=== PATIENT | female | born 1960 | race African-American/Black ===

== ENCOUNTER 2019-04-02 14:20 | Inpatient (IN) | payer OTHER ==
[~2019-04-02] VITALS: Ht 160 cm; Wt 108.2 kg
[2019-04-02] MEDS ORDERED: NITR0.4T49 SL (14:38)
[2019-04-02] MEDS ORDERED: GABA-529 PO (14:38)
[2019-04-02 15:27] LABS: BASOPHILS % 0.3 % (0.0-2.0); EOSINOPHILS % 0.8 % (0.0-5.0); HEMATOCRIT. 36.9 % (36.0-48.0); HEMOGLOBIN. 12.2 g/dL (12.0-16.0); LYMPHOCYTES % 15.1 % (20.0-50.0); MEAN CORPUSCULAR HEMOGLOBIN 28.5 pg (28.0-32.0); MEAN CORPUSCULAR VOLUME 86.3 fL (81.0-99.0); MEAN PLATELET VOLUME 8.1 fl (7.4-10.4); MONOCYTES % 4.8 % (2.0-8.0); PLATELET 311 x1000/uL (130-400); RED BLOOD CELL COUNT 4.28 mill/uL (4.2-5.4); RED CELL DISTRIBUTION WIDTH 16.2 % (11.6-14.6)
[2019-04-02 15:33] LABS: CHLORIDE 106 mEq/L (98-107)
[2019-04-02] MEDS ORDERED: NITROGLYCERIN 0.4MG TABLET SL SL PRN (16:00)
[2019-04-02] MEDS ORDERED: KETOROLAC 15MG/ML VIAL IV PRN (16:00)
[2019-04-02] MEDS ORDERED: CLONIDINE 0.1MG TABLET PO PRN (16:00)
[2019-04-02] MEDS ORDERED: ACETAMINOPHEN 325MG TABLET PO PRN (16:00)
[2019-04-02] MEDS ORDERED: DOCUSATE SODIUM 100MG CAPSULE PO PRN (16:00)
[2019-04-02] MEDS ORDERED: ONDANSETRON HCL 4MG/2ML INJ IV PRN (16:00)
[2019-04-02] MEDS ORDERED: GUAIFENESIN 200MG/10ML SUGAR FREE UDC PO PRN (16:00)
[2019-04-02] MEDS ORDERED: LORAZEPAM 0.5MG TABLET PO PRN (16:00)
[2019-04-02] MEDS ORDERED: ZOLPIDEM TARTRATE 5MG TABLET PO PRN (16:00)
[2019-04-02] MEDS ORDERED: IPRATROPIUM/ALBUTEROL 0.5-3(2.5)MG/3ML NEB NEB PRN (16:00)
[2019-04-02] MEDS ORDERED: MAGNESIUM/ALUMINUM HYDROXIDE/SIMETHICONE 30ML UDC PO PRN (16:00)
[2019-04-02 16:34] LABS: *AMPHETAMINES SCREEN URINE NEGATIVE (NEGATIVE); *BARBITURATES SCREEN URINE NEGATIVE (NEGATIVE); *BENZODIAZEPINES SCREEN URINE NEGATIVE (NEGATIVE); *COCAINE SCREEN URINE NEGATIVE (NEGATIVE); METHADONE URINE SCREEN NEGATIVE (NEGATIVE); OPIATES URINE SCREEN NEGATIVE (NEGATIVE)
[2019-04-02 16:35] LABS: CANNABINOID URINE SCREEN NEGATIVE (NEGATIVE); PHENCYCLIDINE URINE SCREEN NEGATIVE (NEGATIVE)
[2019-04-02] MEDS ORDERED: DEXTROSE 50% WATER 50ML SYRINGE IV PRN (17:00)
[2019-04-02] MEDS ORDERED: ENOXAPARIN 40MG/0.4ML SYR SUBCUT SCH (17:00)
[2019-04-02] MEDS: INSULIN LISPRO 100 UNITS/ML SUBCUT SCH ×2 (18:20→22:00)
[2019-04-02] MEDS: BLOOD SUGAR DIAGNOSTIC STRIP TEST SCH ×2 (18:43→22:00)
[2019-04-02 21:05] VITALS: BP 112/67
[2019-04-02] MEDS ORDERED: FAMOTIDINE 20MG TABLET PO SCH (22:00)
[2019-04-02] MEDS ORDERED: ATORVASTATIN CALCIUM 40MG TABLET PO SCH (22:00)
[2019-04-02] MEDS ORDERED: ISOS20TA57 PO (22:59)
[2019-04-02] MEDS ORDERED: CETI10TA6 PO (22:59)
[2019-04-02] MEDS ORDERED: CARV25TA47 PO (22:59)
[2019-04-02] MEDS ORDERED: FURO20TA4 PO (22:59)
[2019-04-02] MEDS ORDERED: METF-414 PO (22:59)
[2019-04-02] MEDS ORDERED: ASPI-1393 PO (22:59)
[2019-04-02] MEDS ORDERED: FAMO20TA8 PO (22:59)
[2019-04-02] MEDS ORDERED: BENA40TA9 PO (22:59)
[2019-04-02] MEDS ORDERED: GLIP5TAB12 PO (22:59)
[2019-04-02] MEDS ORDERED: ATOR80TA PO (22:59)
[2019-04-02] MEDS ORDERED: LIDO700A30 TP (22:59)
[2019-04-03 00:05] LABS: CREATINE KINASE 56 IU/L (26-192); CREATINE KINASE MB FRACTION < 1.0 ng/mL (0.5-3.6)
[2019-04-03 00:46] VITALS: BP 91/53
[2019-04-03 04:00] VITALS: BP 99/61
[2019-04-03] MEDS: BLOOD SUGAR DIAGNOSTIC STRIP TEST SCH ×2 (06:33→12:41)
[2019-04-03] MEDS: INSULIN LISPRO 100 UNITS/ML SUBCUT SCH ×2 (07:50→12:50)
[2019-04-03 08:25] LABS: CREATINE KINASE 55 IU/L (26-192)
[2019-04-03 08:26] LABS: CREATINE KINASE MB FRACTION < 1.0 ng/mL (0.5-3.6)
[2019-04-03 08:38] VITALS: BP 105/56
[2019-04-03] MEDS ORDERED: ASPIRIN 325MG EC TABLET PO SCH (09:00)
[2019-04-03 11:59] VITALS: BP 96/55
[2019-04-03 13:43] VITALS: BP 96/55
== END 2019-04-03 14:47 | disposition home or self-care (01) | DRG 198 ==
LOC: ER 14:20 → 6WST 15:42 → EDBEDREQTM 15:45 → EDBEDREQ 15:45 → ENRESERV 20:25
PROVIDERS: ADMIT Internal Medicine; ATTEND Internal Medicine
DX: R07.89 Other chest pain (principal); I25.10 Atherosclerotic heart disease of native coronary artery without angina pectoris; I11.0 Hypertensive heart disease with heart failure; I50.9 Heart failure, unspecified; E11.65 Type 2 diabetes mellitus with hyperglycemia; E66.01 Morbid (severe) obesity due to excess calories; Z95.5 Presence of coronary angioplasty implant and graft; Z79.899 Other long term (current) drug therapy; I25.2 Old myocardial infarction; Z68.41 Body mass index [BMI] 40.0-44.9, adult; Z71.3 Dietary counseling and surveillance
CPT/HCPCS: 36415; 71045; 76770; 80061; 80305; 82550; 82553; 82962; 83036; 83880; 84484; 93005; 93970; 96372; 99291; J1650

== ENCOUNTER 2023-04-16 08:13 | Emergency (ER) | payer OTHER ==
[~2023-04-16] VITALS: Ht 160 cm; Wt 109.0 kg
[~2023-04-16 08:13] MED LIST: ASPI-1497 PO; ATOR80TA PO; BENA40TA91 PO; CARV25TA47 PO; CETI10TA6 PO; FAMO20TA8 PO; FURO20TA4 PO; GABA-529 PO; GLIP5TAB12 PO; ISMO20 PO; LIDO700A30 TP; METF-414 PO; NITR0.4T49 SL
[2023-04-16 08:17] VITALS: TEMP 98.1; O2SAT 97
[2023-04-16] MEDS ORDERED: ASPIRIN 81MG TABLET PO ONE (09:00)
[2023-04-16 09:17] LABS: BASOPHILS % 0.5 % (0.0-2.0); EOSINOPHILS % 0.6 % (0.0-5.0); HEMATOCRIT. 40.1 % (36.0-48.0); HEMOGLOBIN. 12.9 g/dL (12.0-16.0); MEAN CORPUSCULAR HEMOGLOBIN 28.2 pg (28.0-32.0); MEAN CORPUSCULAR HGB CONC 32.3 g/dL (31.0-37.0); MEAN CORPUSCULAR VOLUME 87.5 fL (81.0-99.0); MEAN PLATELET VOLUME 8.4 fl (7.4-10.4); MONOCYTES % 3.7 % (2.0-8.0); NEUTROPHILS % 74.2 % (40.0-76.0); PLATELET 350 x1000/uL (130-400); RED BLOOD CELL COUNT 4.58 mill/uL (4.2-5.4); RED CELL DISTRIBUTION WIDTH 16.1 % (11.6-14.6); WHITE BLOOD COUNT 9.8 x1000/uL (4.5-11.0)
[2023-04-16 09:28] LABS: CHLORIDE 107 mEq/L (98-107); INDEX HEMOLYSI 1 (1-3); INDEX ICTERIC 1 (1-4); INDEX LIPEMIC 1 (1-3); POTASSIUM 5.5 mEq/L (3.5-5.1); SODIUM 133 mEq/L (136-145)
[2023-04-16 09:40] LABS: ALANINE AMINOTRANSFERASE 22 IU/L (13-61); ALBUMIN 3.4 g/dL (3.4-5.0); ASPARTATE AMINOTRANSFERASE 15 IU/L (15-37); BILIRUBIN TOTAL 0.6 mg/dL (0.1-1.0); CALCIUM 9.3 mg/dL (8.5-10.1); CARBON DIOXIDE 20 mEq/L (21-32); CREATININE 2.4 mg/dL (0.6-1.3); GLUCOSE 363 mg/dL (70-105); NT PRO B-TYPE NATRIURETIC PEP 293 pg/mL (5-125); PROTEIN TOTAL 8.9 g/dL (6.0-8.3); TROPONIN I HIGH SENSITIVITY 11 ng/L (<54); UREA NITROGEN BLOOD 51 mg/dL (7-21)
[2023-04-16 12:09] VITALS: BP 102/68; PULSE 74; RESP 19
== END 2023-04-16 12:15 | disposition home or self-care (01) ==
LOC: ER 08:18
DX: R07.89 Other chest pain (principal); I11.0 Hypertensive heart disease with heart failure; I50.9 Heart failure, unspecified; Z79.899 Other long term (current) drug therapy
CPT/HCPCS: 80053; 83880; 85025; 84484; 36415; 71045; 93005; 99285; Z7610 ×2